=== PATIENT | female | born 1975 | race Two or more races ===

== ENCOUNTER 2021-05-05 04:15 | Emergency (ER) | payer SELFPAY ==
[~2021-05-05] VITALS: Ht 162.6 cm; Wt 81.8 kg
--- NOTE | 2021-05-05 04:44 | PHYS DOC ---
Past Medical History Past Medical History: No Pertinent History Past Surgical History: No Surgical History Smoking Status: Never Smoker General Adult EDM: Chief Complaint: Right flank pain HPI: HPI: 46-year-old female presents to the emergency department complaining of several days of right flank pain, she complains of a dull and stabbing pain that comes and goes on the right side, radiates to the right groin, some nausea but no vomiting or diarrhea, no fever, chills, no vaginal bleeding, no chest pain or shortness of breath, no known history of kidney stones in the past, no recent travel or antibiotic use Review of Systems: Review of Systems: General: no fevers , no chills, no general weakness Eyes: no blurred vision, no diplopia Skin: no rashes Neck: no swelling, no neck stiffness, no neck pain Heme: no bleeding, no lymph node enlargement Ear/Nose/Throat: No sore throat, no runny nose, no hearing loss, no difficulty swallowing Cardiovascular: no Chest pain, no palpitations Respiratory: No dyspnea, no cough, no hemoptysis Gastrointestinal: No abdominal pain, no nausea, no vomiting, no diarrhea, no blood in stool Genitourinary: Positive for flank pain, Musculoskeletal: no back pain, no leg pain, no arm pain, no arthralgia Neurologic: no headaches, no dizziness, no focal numbness/tingling, no focal weakness Psych: no depression, no anxiety, no SI/HI *All review of systems are negative other than what is noted above Heart Score: C/O Chest Pain: No Risk Factors: Risk Factors: DM, Current or recent (<one month) smoker, HTN, HLP, family history of CAD, obesity. Risk Scores: Score 0 - 3: 2.5% MACE over next 6 weeks - Discharge Home Score 4 - 6: 20.3% MACE over next 6 weeks - Admit for Clinical Observation Score 7 - 10: 72.7% MACE over next 6 weeks - Early Invasive Strategies Physical Exam: PE: Gen-well appearing, no acute distress Head: Normocephalic/Atraumatic ENT: atraumatic, PERRLA, EOMI, oropharynx clear Neck: supple, full ROM/strength, no JVD, no nuchal rigidity Lungs: no distress, speaks in full sentences, Clear to auscultation bilaterally CV: reg rate, rhythm, no murmus/rubs/gallops, peripheral pulses equal in all extremities Abdomen: soft/nontender, no guarding/rebound tenderness, no rigidity, non distended, normoactive bowel sounds Musculoskeletal: full ROM/strength in all extremities, atraumatic, no swelling Back: full range of motion/strength Skin: intact, no rashes Lymph: no gross LELAND Neuro: alert and oriented x 4, CN 2-12 grossly intact, Motor strength is 5/5 in all extremities, no focal sensory deficits, no focal ataxia, ambulatory with steady gait Psych: normal mood/affect EKG: EKG: [] Radiology/Procedures: Radiology/Procedures: [] Course & Med Decision Making: Course & Med Decision Making Pertinent Labs and Imaging studies reviewed. (See chart for details) [] 46-year-old female presents to the emergency department right of right flank pain, suspicious for renal colic given its sudden onset, and its intermittent nature, however the pertinent differential diagnosis in this patient includes but not limited to UTI/pyelonephritis, gallstone, gastroenteritis, diverticulitis, appendicitis less likely, unlikely AAA, SBO, mesenteric ischemia, unlikely ovarian torsion, no pain at proportion on exam I do not suspect any mesenteric ischemia, no clinical signs of incarcerated hernia, plan at this time is check urine, labs and a CT of the abdomen and pelvis Reevaluation at 5:32 AM: Patient has a 5 mm kidney stone however when I reevaluated and reexamined her she says her pain is gone, I believe she is stable for discharge at this time as the kidney stone had likely passed Patient was seen in the ED for kidney stone on the right as it appeared to have passed in the emergency department there is no apparent evidence of any emergency medical pathology at this time, patient was advised follow-up with their primary care provider /physician in the next 24-48 hours and to return to the ED before then if any new or worsening / concerning symptoms had developed. All questions and concerns were addressed at time of disposition Patient was interviewed and counseled using a [employer] certified hall director [place] Disclaimer: Lowell Disclaimer: This electronic medical record was generated, in whole or in part, using a voice recognition dictation system. Departure Departure Impression: Primary Impression: Kidney stone on right side Disposition: HOME / SELF CARE / HOMELESS Condition: IMPROVED Referrals: NO PCP (PCP) HESHAM SOTO MD Patient Instructions: Kidney Stones Additional Instructions: You have a kidney stone, it is 5 mm long which is very small and in the right ureter, you need to drink plenty of fluids, this will pass very shortly in the next couple of days, please follow-up with your primary care doctor in the next 48 hours, return to the ER before then if any new or worsening/concerning sym ptoms develop Scripts Tamsulosin Hcl (FLOMAX) 0.4 Mg Cap.er.24h 1 CAP PO DAILY for 5 Days, #5 CAP 0 Refills Prov: CELINE NOVOA MD 05/05/21 Ondansetron Hcl (ZOFRAN) 4 Mg Tablet 4 MG PO BID PRN for NAUSEA/VOMITING, #20 TAB Prov: CELINE NOVOA MD 05/05/21 Naproxen (NAPROSYN) 500 Mg Tablet 500 MG PO BID PRN for PAIN, #20 TAB Prov: CELINE NOVOA MD 05/05/21 CELINE NOVOA MD May 05, 2021 04:44
[2021-05-05] MEDS ORDERED: ONDANSETRON PF 4 MG/2 ML VIAL. ONE (04:58)
[2021-05-05 04:59] LABS: BILIRUBIN,URINE SMALL (NEG); CLARITY,URINE TURBID; NITRITE,URINE NEGATIVE (NEG); PROTEIN,URINE 100 mg/dL (NEG-TRACE); UROBILINOGEN,URINE 0.2 mg/dL (0.2 mg/dL)
[2021-05-05 05:08] LABS: COLOR,URINE YELLOW
[2021-05-05 05:09] LABS: AMORPHOUS SEDIMENT,UR PRESENT /HPF; BACTERIA,URINE FEW /HPF (0-FEW); RBC,URINE 20-40 /HPF (0-2)
[2021-05-05 05:10] LABS: BASO % 1 % (0-3); EOS # 0.1 x10^3/uL (0.0-0.7); EOS % 2 % (0-3); HEMATOCRIT 35.6 % (36.0-47.0); HEMOGLOBIN 11.8 g/dL (12.0-15.5); LYMPH # 1.6 x10^3/uL (1.0-4.8); LYMPH % 17 % (24-48); MEAN CORPUSCULAR HEMOGLOBIN 27 pg (25-35); MEAN CORPUSCULAR HGB CONC 33 g/dL (31-37); MEAN CORPUSCULAR VOLUME 82 fL (79-100); MONO # 0.4 x10^3/uL (0.0-1.1); MONO % 5 % (0-9); NEUT # 7.4 x10^3/uL (1.8-7.7); NEUT % 76 % (31-73); PLATELET COUNT 230 x10^3/uL (140-400); RED BLOOD COUNT 4.35 x10^6/uL (3.50-5.40); RED CELL DISTRIBUTION WIDTH 15.2 % (11.5-14.5); WHITE BLOOD COUNT 9.7 x10^3/uL (4.0-11.0)
[2021-05-05] MEDS ORDERED: ONDANSETRON PF 4 MG/2 ML VIAL. IVP ONE (05:15)
[2021-05-05] MEDS ORDERED: MORPHINE SULFATE 4 MG/ML INJ. IVP ONE (05:15)
[2021-05-05] MEDS ORDERED: IV NORMAL SALINE 1000ML BAG 1,000 ML IV ONE (05:15)
[2021-05-05 05:18] LABS: CREATININE 0.7 mg/dL (0.6-1.0); GFR 89.7; POTASSIUM 3.8 mmol/L (3.5-5.1)
[2021-05-05 05:24] LABS: ALBUMIN 3.7 g/dL (3.4-5.0); TOTAL BILIRUBIN 0.4 mg/dL (0.2-1.0); TOTAL PROTEIN 7.4 g/dL (6.4-8.2)
--- NOTE | 2021-05-05 05:30 | RAD ---
PQRS Compliance Statement: One or more of the following individualized dose reduction techniques were utilized for this examinat ion: 1. Automated exposure control 2. Adjustment of the mA and/or kV according to patient size 3. Use of iterative reconstruction technique CT ABDOMEN+PELVIS WO Clinical Indication: Reason: Flank pain / Spl. Instructions: / History: Comparison: None. Technique: Helical CT imaging of the abdomen and pelvis is performed without IV or oral contrast. Findings: Evaluation of solid organs and bowel is limited without oral and IV contrast, decreasing sensitivity for detection of pathology. Minimal bilateral dependent atelectasis. Cardiac size normal. Small hypodensity in the right hepatic lobe, too small to further characterize, image 50. Liver other farias homogeneous. The gallbladder, spleen, pancreas, adrenal glands, and abdominal aorta caliber are normal. The left kidney is normal. There is mild right hydronephrosis secondary to a 5 by 3 mm calculus at th e ureteropelvic junction, image 111. The stomach is unremarkable. There is no dilated small bowel. The appendix is normal. The colon is de compressed, limiting evaluation. No colon wall thickening is seen. No abdominal adenopathy or free fl uid. IUD in the uterus. Adnexa unremarkable. Urinary bladder is mostly decompressed. No pelvic free fluid. No acute bone abnormality. IMPRESSION: Mild right obstructive uropathy secondary to a 5 mm calculus at the ureteropelvic junction. Electronically signed by: Aki Viera MD (05/05/2021 5:28 AM) [facility]
[2021-05-05] MEDS ORDERED: ONDA4TAB7 PO (05:55)
[2021-05-05] MEDS ORDERED: NAPR-683 PO (05:55)
[2021-05-05] MEDS ORDERED: TAMS0.4C97 PO (05:55)
[2021-05-05 05:58] VITALS: BP 109/67
[2021-05-05] MEDS ORDERED: KETOROLAC 30 MG/ML VIAL. IVP ONE (06:00)
== END 2021-05-05 06:20 | disposition home or self-care (01) ==
LOC: ER 04:15
DX: N13.2 Hydronephrosis with renal and ureteral calculous obstruction (principal)
CPT/HCPCS: 36415; 74176; 80053; 81001; 81025; 83690; 85025; 96361; 96374; 96375; 99285; J1885; J2270; J2405; J7030